=== PATIENT | male | born 1960 ===

== ENCOUNTER 2017-12-30 10:20 | Emergency (ER) | payer MEDICAID ==
[2017-12-30 10:21] VITALS: BMI 31.9
[2017-12-30 10:36] VITALS: RESP 18
[2017-12-30] MEDS ORDERED: Tdap Vaccine 0.5 ml Vial (10-64 yrs) IM ONE ×2 (11:10→11:19)
--- NOTE | 2017-12-30 11:57 | RAD ---
PROCEDURE: Left Knee Radiographs. HISTORY: Pain. COMPARISON: None. FINDINGS: BONES: There is no acute displaced fracture or bone destruction. Bone alignment and mineralization are normal. JOINTS: There is mild degenerative osteoarthrosis in the medial compartment with mild reduced joint space, marginal spurring and tibial spiking. JOINT EFFUSION: None. OTHER FINDINGS: None. IMPRESSION: No acute fracture or dislocation. Mild degenerative osteoarthrosis in the medial compartment.
--- NOTE | 2017-12-30 12:08 | C.PDOC ---
History Of Present Illness 57 year old male presents to the ED for evaluation of knee pain and multiple abrasions. Patient reports he tripped on uneven pavement which made him fall onto his hands and knees. Patient noted having abrasion on his left knee and right hand. Patient denies head injury, headache, LOC, dizziness, weakness, numbness. Time Seen by Provider: 12/30/17 11:03 Chief Complaint (Nursing): Lower Extremity Problem/Injury History Per: Patient History/Exam Limitations: no limitations Onset/Duration Of Symptoms: Hrs Current Symptoms Are (Timing): Still Present Recent travel outside of the [place]: No Additional History Per: Patient - Knee Description Of Injury: Fell Past Medical History Reviewed: Historical Data, Nursing Documentation, Vital Signs Vital Signs: Last Vital Signs Temp 98.1 F 12/30/17 12:14 Pulse 71 12/30/17 12:14 Resp 18 12/30/17 12:14 BP 99/66 L 12/30/17 12:14 Pulse Ox 99 12/30/17 12:50 - Medical History PMH: Anxiety, Asthma, Depression Denies: Diabetes, Hepatitis, HIV, HTN, Seizures, Sexually Transmitted Disease Surgical History: No Surg Hx - [facility] Procedures CENTRAL VENOUS CATHETER PLACEMENT WITH GUIDANCE (06/24/13) DRESSING OF WOUND NEC (06/24/13) EXCIS DEBRIDE OF WOUND, INFECT, OR BURN (06/24/13) NONEXCIS DEBRID OF WOUND, INFECT, OR BURN (06/24/13) OTHER SKIN & SUBQ I D (06/24/13) SKIN REPAIR & PLASTY NEC (06/24/13) Family History: States: Unknown Family Hx - Social History Hx Tobacco Use: Yes Hx Alcohol Use: Yes (denies) Hx Substance Use: No - Immunization History Hx Tetanus Toxoid Vaccination: No Hx Influenza Vaccination: No Hx Pneumococcal Vaccination: No Review Of Systems Constitutional: Negative for: Fever, Chills Cardiovascular: Negative for: Chest Pain Respiratory: Negative for: Shortness of Breath Gastrointestinal: Negative for: Abdominal Pain Musculoskeletal: Positive for: Hand Pain, Leg Pain Skin: Negative for: Rash Neurological: Negative for: Headache, Dizziness Physical Exam - Physical Exam Appears: Non-toxic, No Acute Distress Skin: Normal Color, Warm, Dry, Other (abrasion to right palm and proximal left knee, covered by pt with liquid bandage) Head: Atraumatic, Normacephalic Eye(s): bilateral: Normal Inspection Neck: Normal ROM, No Midline Cervical Tenderness, Supple Extremity: Normal ROM (B/L arms, hands, wrists), Tenderness (left patella), Capillary Refill (< 2 seconds), No Swelling, Other (abrasion hypothenar eminence or right hand. Abrasion pf proximal left patella) Pulses: Left Radial: Normal, Right Radial: Normal, Left Dorsalis Pedis: Normal, Right Dorsalis Pedis: Normal Neurological/Psych: Oriented x3, Normal Motor, Normal Sensation Gait: Steady ED Course And Treatment O2 Sat by Pulse Oximetry: 99 (ON RA) Pulse Ox Interpretation: Normal - Other Rad Left Knee X-Ray X-Ray: Viewed By Me, Read By Radiologist Interpretation: PROCEDURE: Left Knee Radiographs. HISTORY: Pain. COMPARISON : None. FINDINGS: BONES: There is no acute displaced fracture or bone destruction. Bone alignment and mineralization are normal. JOINTS: There is mild degenerative osteoarthrosis in the medial compartment with mild reduced joint space, marginal spurring and tibial spiking. JOINT EFFUSION: None. OTHER FINDINGS: None. IMPRESSION: No acute fracture or dislocation. Mild degenerative osteoarthrosis in the medial compartment. Medical Decision Making Medical Decision Making: Impression: left knee pain, multiple abrasion s/p falling Plan: * tetanus update * Left Knee X-Ray * Motrin 600 mg PO Disposition Counseled Patient/Family Regarding: Studies Performed, Diagnosis, Need For Followup, Rx Given - Disposition Referrals: Woodrow Ch MD [Medical Doctor] - Disposition: HOME/ ROUTINE Disposition Time: 12:26 Condition: GOOD Additional Instructions: Keep abrasions clean and dry. Take ibuprofen if needed for pain. Follow up with your PMD in a few days. Return for any worse symptoms. Prescriptions: Ibuprofen [Motrin] 600 mg PO TID #30 tab Instructions: Skin Abrasions (DC) Forms: [facility] ([place]), General Discharge Instructions - Clinical Impression Clinical Impression: Fall from slip, trip, or stumble, Multiple abrasions, Knee injury - PA / MAST MAKER / Resident Statement MD/DO has reviewed & agrees with the documentation as recorded. - Scribe Statement The provider has reviewed the documentation as recorded by the Scribe George Koehler All medical record entries made by the Scribe were at my direction and personally dictated by me. I have reviewed the chart and agree that the record accurately reflects my personal performance of the history, physical exam, medical decision making, and the department course for this patient. I have also personally directed, reviewed, and agree with the discharge instructions and disposition.
[2017-12-30 12:15] VITALS: BP 99/66; PULSE 71; TEMP 98.1
[2017-12-30 12:19] VITALS: O2SAT 99
== END 2017-12-30 12:33 | disposition home or self-care (01) ==
LOC: C.ER 10:20
DX: S80.212A Abrasion, left knee, initial encounter (principal); S60.511A Abrasion of right hand, initial encounter; W01.0XXA Fall on same level from slipping, tripping and stumbling without subsequent striking against object, initial encounter; Y92.480 Sidewalk as the place of occurrence of the external cause